=== PATIENT | female | born 1980 | race Caucasian/White ===

== ENCOUNTER 2019-07-13 08:29 | Emergency (ER) | payer SELFPAY ==
[~2019-07-13] VITALS: Ht 170 cm; Wt 63.6 kg
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
[2019-07-13] MEDS ORDERED: CLINDAMYCIN (09:07)
[2019-07-13] MEDS ORDERED: NAPROXEN (09:07)
[2019-07-13] MEDS ORDERED: KETOROLAC 60 MG/2 ML VIAL IM ONE (09:45)
[2019-07-13] MEDS ORDERED: LIDOCAINE 2% VISCOUS 15 ML UDC PO ONE (09:45)
--- NOTE | 2019-07-13 09:46 | ED EENT ---
History of Present Illness General Chief Complaint: Dental Problems/Pain Stated Complaint: DENTAL PAIN/SWELLING Nursing Triage Note: AMB TO ED C/O OF DENTAL PAIN FOR 6 DAY'S WAS SEEN AT [facility] ON THURSDAY STARTED CLINDAMYCIN. AND NAPROXEN. IS NOT ANY BETTER REPORTS THAT CALLED CLINIC AND THEY TOLD HER TO COME TO ED. Source: patient Exam Limitations: no limitations History of Present Illness Date Seen by Provider: Jul 13, 2019 Time Seen by Provider: 09:30 Initial Comments The patient presents ER by private conveyance from home with chief complaint of 6 days of pain and swelling in her upper anterior teeth and gums. She went to the dentist Thursday, 3 days ago and was started on clindamycin which she's been taking ever since then. She says the swelling and pain is only gotten worse. She can swallow she does not have a problem with breathing. She is not having any nausea fevers or chills cough or recent travel. She has been using ibuprofen occasionally as well as topical gels with minimal relief of pain. She has severe pain in her bilateral maxillary sinuses. Her stated allergy to penicillin is anaphylaxis. She's not having any discharge from the gums or teeth. She says they did not pablo anything when she was at the dentist. Allergies and Home Medications Allergies Coded Allergies: Penicillins (Verified Allergy, Unknown, 07/13/19) Patient Home Medication List Home Medication List Reviewed: Yes Review of Systems Review of Systems Constitutional: No chills, No diaphoresis Eyes: Denies Blindness, Denies Drainage Ears: Denies Dizziness, Denies Pain Nose: denies clots, denies congestion Mouth: see HPI; denies clots; pain, swelling; denies bloody discharge, denies purulent discharge Throat: denies pain, denies swelling, denies discharge Respiratory: No cough, No short of breath Cardiovascular: No chest pain, No edema All Other Systems Reviewed Negative Unless Noted: Yes Past Vkkhqjb-Rfdffd-Ncbkcf Hx Patient Social History Alcohol Use: Denies Use Recreational Drug Use: No Smoking Status: Never a Smoker Recent Foreign Travel: No Contact w/Someone Who Travel: No Recent Infectious Disease Expo: No Physical Exam Vital Signs Vital Signs - First Documented 07/13/19 08:49 Temp 37.0 Pulse 81 Resp 18 B/P (MAP) 114/71 (85) Pulse Ox 98 O2 Delivery Room Air Height, Weight, BMI Height: '" Weight: lbs. oz. kg; 22.00 BMI Method: General Appearance: WD/WN, mild distress Eyes: bilateral eye normal inspection, bilateral eye PERRL, bilateral eye EOMI Ears: bilateral ear auricle normal, bilateral ear canal normal, bilateral ear TM normal Nose: normal inspection; No active bleeding, No discharge Mouth/Throat: other (Extensive dental caries throughout the entire mouth with moderate gingivitis anterior upper maxillary teeth. Severe sensitivity and pain over the bilateral maxillary sinus cavities. Erythematous congested nasal mucosa. No pointing or distinct abscess to drain.) Neck: non-tender, full range of motion, supple, normal inspection Cardiovascular: normal peripheral pulses, regular rate, rhythm Respiratory: no respiratory distress, no accessory muscle use Skin: normal color, warm/dry Progress/Results/Core Measures Results/Orders My Orders Orders - NAT BENAVIDES Ct Maxillofacial Wo (07/13/19 09:39) Ketorolac Injection (Toradol Injection) (07/13/19 09:45) Lidocaine 2% Viscous 15 Ml (Xylocaine Vi (07/13/19 09:45) Medications Given in ED Current Medications Medications Dose Ordered Sig/Micah Route Start Time Stop Time Status Last Admin Dose Admin Ketorolac Tromethamine 60 mg ONCE ONCE IM 07/13/19 09:45 07/13/19 09:46 DC 07/13/19 10:28 60 MG Lidocaine HCl 5 ml ONCE ONCE PO 07/13/19 09:45 07/13/19 09:46 DC 07/13/19 10:28 5 ML Vital Signs/I&O 07/13/19 08:49 Temp 37.0 Pulse 81 Resp 18 B/P (MAP) 114/71 (85) Pulse Ox 98 O2 Delivery Room Air Blood Pressure Mean: 85 Progress Progress Note #1: Time: 09:45 Progress Note Toradol viscous lidocaine for pain. Plan to get a CT of the maxillofacial looking for abscess or sinus involvement. She has benign vital signs. She is getting some soft tissue cellulitis in addition to the dental abscess. Progress Note #2: Time: 10:[address] did not demonstrate any extensive disease. Does seems to be just cellulitis of the face and we will give her a dose of Rocephin IM in addition to her clindamycin as well as encourage her to go on probiotics. Continue with Aleve, Tylenol, warm compresses. Return precautions given. Diagnostic Imaging Diagonstic Imaging: CT (without IV contrast) Plain Films/CT/US/NM/MRI: facial bones Comments [facility]. [place], [place] NAME: DAVIAN CHEUNG [facility] REC#: [id number] PT STATUS: REG ER : 1980 PHYSICIAN: NAT BENAVIDES MD ADMIT DATE: 07/13/19/ER Draft Date of Exam:07/13/19 CT MAXILLOFACIAL WO PROCEDURE: CT maxillofacial without contrast. TECHNIQUE: Multiple contiguous axial images were obtained through the facial bones without the use of intravenous contrast. Auto Exposure Controls were utilized during the CT exam to meet ALARA standards for radiation dose reduction. INDICATION: Left nasal swelling and congestion. No prior studies are available for comparison. The frontal sinus is clear. The ethmoid air cells are clear. There is minimal mucosal thickening of the sphenoid sinus. Bilateral maxillary sinuses are clear. No air-fluid levels are detected. Ostiomeatal complexes appear to be patent. Nasal septum is midline. No overlying soft tissue fluid collection is seen IMPRESSION: Minimal sphenoid sinus mucosal disease. The study is otherwise unremarkable. Dictated on workstation # [id number] Dict: 07/13/19 1003 Trans: 07/13/19 1008 [facility] [id number] Interpreted by: WILDA PRUITT MD Electronically signed by: Reviewed: Reviewed by Me Departure Impression Primary Impression: Dental abscess Additional Impression: Facial cellulitis Disposition: 01 HOME, SELF-CARE Condition: Stable Departure-Patient Inst. Decision time for Depature: 10:41 Referrals: NO,LOCAL PHYSICIAN (PCP) Primary Care Physician Patient Instructions: Dental Pain (DC), Cellulitis and Erysipelas (Skin Infections) Add. Discharge Instructions: Because of the abscess in your teeth you also have gotten a small soft tissue infection in the skin of your lips and face. Today we have given you an injection antibiotic that will last for about 24 hours. You should continue to take the clindamycin. Should see improvement over the next 2-3 days. Return to the ER if you're having difficulty swallowing fluids, breathing, or worsening symptoms after 2-3 days. Tylenol 1000 mg every 8 hours as needed for pain. Aleve 2 tablets twice a day or ibuprofen 800 mg every 8 hours as needed for pain. Warm compresses applied your face as often as necessary for swelling and pain. Viscous lidocaine applied to the gums and topical pain medicines such as Orajel as necessary. Keep your follow-up appointment with the dentist. All discharge instructions reviewed with patient and/or family. Voiced understanding. Work/School Note: Work Release Form Date Seen in the Emergency Department: Jul 13, 2019 Return to Work: Jul 15, 2019 Restrictions: No Restrictions NAT BENAVIDES Jul 13, 2019 09:46
--- NOTE | 2019-07-13 10:09 | Diagnostic Imaging Report ---
PROCEDURE: CT maxillofacial without contrast. TECHNIQUE: Multiple contiguous axial images were obtained through the facial bones without the use of intravenous contrast. Auto Exposure Controls were utilized during the CT exam to meet ALARA standards for radiation dose reduction. INDICATION: Left nasal swelling and congestion. No prior studies are available for comparison. The frontal sinus is clear. The ethmoid air cells are clear. There is minimal mucosal thickening of the sphenoid sinus. Bilateral maxillary sinuses are clear. No air-fluid levels are detected. Ostiomeatal complexes appear to be patent. Nasal septum is midline. No overlying soft tissue fluid collection is seen IMPRESSION: Minimal sphenoid sinus mucosal disease. The study is otherwise unremarkable. Dictated by: Dictated on workstation # [id number]
[2019-07-13] MEDS ORDERED: LIDOCAINE 1% INJ 20 ML 20 ML VIAL INJ ONE (11:00)
[2019-07-13] MEDS ORDERED: cefTRIAXone 1,000 MG/2.86 ml vial (IM ONLY) IM ONE (11:00)
[2019-07-13 11:28] VITALS: BP 113/76
== END 2019-07-13 11:24 | disposition home or self-care (01) ==
LOC: ER 08:31
DX: K04.7 Periapical abscess without sinus (principal); L03.211 Cellulitis of face
CPT/HCPCS: 70486